=== PATIENT | female | born 2000 | race Two or more races ===

== ENCOUNTER 2019-08-21 18:39 | Emergency (ER) | payer MEDICAID ==
[~2019-08-21] VITALS: Ht 154.9 cm; Wt 49.9 kg
[2019-08-21 18:52] VITALS: BP 114/81
== END 2019-08-21 23:33 | disposition left against medical advice (07) ==
LOC: ER 18:41
DX: R51 Headache (principal); Z53.21 Procedure and treatment not carried out due to patient leaving prior to being seen by health care provider

== ENCOUNTER 2019-12-05 10:57 | Emergency (ER) | payer MEDICAID ==
[~2019-12-05] VITALS: Ht 154.9 cm; Wt 54.4 kg
[2019-12-05 12:47] VITALS: BP 120/67
== END 2019-12-05 13:35 | disposition home or self-care (01) ==
LOC: ER 11:11
DX: R68.84 Jaw pain (principal); Z32.01 Encounter for pregnancy test, result positive; Y08.89XA Assault by other specified means, initial encounter; Y93.89 Activity, other specified; Y99.8 Other external cause status; Y92.89 Other specified places as the place of occurrence of the external cause
CPT/HCPCS: 81002; 81025

== ENCOUNTER 2022-10-29 00:47 | Emergency (ER) | payer MEDICAID ==
[~2022-10-29] VITALS: Ht 154.9 cm; Wt 59.0 kg
[2022-10-29] MEDS ORDERED: FAMOTIDINE (10MG/ML) 2ML VL IV ONE (01:00)
[2022-10-29] MEDS ORDERED: diphenhdrAMINE HCL 50 MG/1 ML VL IV ONE (01:00)
[2022-10-29] MEDS ORDERED: IPRATROPIUM BROM 0.5 MG/2.5ML INH SOL NEB ONE (01:00)
[2022-10-29] MEDS ORDERED: EPINEPHrine HCL 1 MG/1 ML AMP IM ONE (01:00)
[2022-10-29] MEDS ORDERED: ALBUTEROL SULF 2.5 MG/0.5ML(0.5%) NEB SOLN NEB ONE (01:00)
[2022-10-29] MEDS ORDERED: methylPREDNISolone SOD SUCC 125 MG/2 ML VL IV ONE (01:00)
[2022-10-29 01:47] LABS: BUN/Creatinine Ratio 15.8; Calcium 9.2 mg/dL (8.5-10.1)
[2022-10-29 01:50] LABS: Bilirubin, Total 0.7 mg/dL (0.2-1.0); Total Protein 7.7 g/dL (6.4-8.2)
[2022-10-29 02:07] LABS: Basophils # (auto) 0 10 ^3/uL (0-0.2); Eosinophils # (auto) 0.1 10 ^3/uL (0-0.8); Eosinophils % (auto) 0.4 % (0.0-7.0); Hematocrit 43.2 % (36.0-46.0); Hemoglobin 14.5 g/dL (12.2-16.2); Lymphocytes # (auto) 5.9 10 ^3/uL (0.4-5.4); Lymphocytes % (auto) 28.3 % (10.0-50.0); Mean Corpuscular Hemoglobin 30.7 pg (28.0-32.0); Mean Corpuscular Hgb Conc. 33.6 g/dL (32.0-36.0); Mean Corpuscular Volume 91.3 fL (80.0-100.0); Monocytes # (auto) 1.4 10 ^3/uL (0-1.3); Monocytes % (auto) 6.7 % (0.0-12.0); Neutrophils # (auto) 13.4 10 ^3/uL (1.6-8.6); Neutrophils % (auto) 64.6 % (37.0-80.0); Potassium 2.7 mmol/L (3.5-5.1); Red Blood Cells 4.74 10^6/uL (4.0-5.20); Red Cell Distribution Width 13.2 % (11.8-14.3); White Blood Cell 20.7 10^3/uL (4.4-10.8)
[2022-10-29] MEDS ORDERED: POTASSIUM CHL 20 Meq TABLET PO ONE (02:15)
[2022-10-29 03:30] VITALS: BP 101/67
[2022-10-29] MEDS ORDERED: ALPR0.5T PO (03:31)
[2022-10-29] MEDS ORDERED: PRED20TA2 PO (03:31)
[2022-10-29] MEDS ORDERED: ALBUAER3 IN (03:31)
[2022-10-29] MEDS: ALPRAZolam 0.5 MG TAB PO ONE ×2 (03:34→03:43)
== END 2022-10-29 03:44 | disposition home or self-care (01) ==
LOC: ER 00:49
DX: T78.40XA Allergy, unspecified, initial encounter (principal); F41.9 Anxiety disorder, unspecified; Y92.89 Other specified places as the place of occurrence of the external cause
CPT/HCPCS: 36415; 71045; 80053; 84484; 85025; 93005; 94640; 96374; 96375; 99285; J0171; J1200; J2930; J3490; J7644

== ENCOUNTER 2024-05-06 13:54 | Inpatient (IN) | payer MEDICAID ==
[~2024-05-06] VITALS: Ht 167.6 cm; Wt 73.7 kg
[2024-05-06] VITALS (26 sets, daily range): BP systolic 66–192; BP diastolic 29–111; PULSE 70–118; RESP 13–22; TEMP 97.1–100.2; O2SAT 100
[~2024-05-06 13:54] MED LIST: ALBUAER3 IN; ALPR0.5T PO; PRED20TA2 PO
[2024-05-06] MEDS ORDERED: DexAMETHasone SOD PHOS 10MG/1ML VIAL INJ ONE (14:31)
[2024-05-06] MEDS ORDERED: PROPOFOL 10 MG/ML 20 ML IV ONE (14:31)
[2024-05-06] MEDS ORDERED: ONDANSETRON HCL 4 MG/2 ML VIAL ONE (14:31)
[2024-05-06] MEDS ORDERED: ROCURONIUM 10MG/ML 10ML VIAL IV ONE (14:31)
[2024-05-06] MEDS ORDERED: fentaNYL CITRATE 100 MCG/2 ML VL ONE (14:31)
[2024-05-06] MEDS ORDERED: ePHEDrine SULFATE 50 MG/ML AMP ONE (14:31)
[2024-05-06] MEDS ORDERED: MIDAZOLAM HCL 2MG/2ML 2ml VIAL (1mg/ml) ONE ×2 (14:31→17:25)
[2024-05-06] MEDS: LACT. RINGERS/OXYTOCIN 20UNITS 1,000 ML IV ONE (14:32)
[2024-05-06] MEDS: SUCCINYLCHOLINE CHLORIDE 20 MG/ML 10ML VIAL IV ONE (14:36)
[2024-05-06] MEDS: TRANEXAMIC ACID 10 ML ONE ×2 (14:48→15:51)
[2024-05-06] MEDS ORDERED: KETAMINE 50mg/ML 1ml syringe ONE (14:49)
[2024-05-06 15:02] LABS: Anion Gap 5 (5-15); Carbon Dioxide 21 mmol/L (20-30); Chloride 114 mmol/L (98-107); Potassium 3.7 mmol/L (3.5-5.1); Sodium 140 mmol/L (136-145)
[2024-05-06 15:08] LABS: Glucose 88 mg/dL (74-106)
[2024-05-06] MEDS: CARBOPROST TROMETHAMINE 250 MCG/1ML VIAL IM ONE (15:17)
[2024-05-06 15:18] LABS: BUN/Creatinine Ratio 10.4 (10.0-20.0); Blood Urea Nitrogen < 5 mg/dL (9-23)
[2024-05-06 15:41] LABS: Basophils # (auto) 0 10 ^3/uL (0-0.2); Eosinophils # (auto) 0.2 10 ^3/uL (0-0.8); Monocytes # (auto) 0.7 10 ^3/uL (0-1.3); Monocytes % (auto) 7.7 % (0.0-12.0); White Blood Cell 8.8 10^3/uL (4.4-10.8)
[2024-05-06 15:44] LABS: Basophils % (auto) 0.1 % (0.0-2.0); Eosinophils % (auto) 2.4 % (0.0-7.0); Hematocrit 19.9 % (36.0-46.0); Lymphocytes # (auto) 1.1 10 ^3/uL (0.4-5.4); Mean Corpuscular Hemoglobin 31.6 pg (28.0-32.0); Mean Corpuscular Hgb Conc. 34.4 g/dL (32.0-36.0); Mean Corpuscular Volume 91.8 fL (80.0-100.0); Neutrophils # (auto) 6.8 10 ^3/uL (1.6-8.6); Neutrophils % (auto) 76.8 % (37.0-80.0); Nucleated Red Blood Cells % 0.1 %; Red Blood Cells 2.16 10^6/uL (4.0-5.20)
[2024-05-06 15:49] LABS: Prothrombin Time 13.5 sec (9.3-11.8)
[2024-05-06] MEDS: METHYLERGONOVINE MALEATE 0.2 MG/ML AMP IM ONE (15:50)
[2024-05-06 15:56] LABS: Hemoglobin 6.8 g/dL (12.2-16.2)
[2024-05-06] MEDS ORDERED: HYDROmorphone HCL 2 MG/ML VL/or syr ONE (16:24)
[2024-05-06 17:00] LABS: Platelet Estimate Decreased
[2024-05-06 17:05] LABS: Basophils # (auto) 0 10 ^3/uL (0-0.2); Eosinophils # (auto) 0.1 10 ^3/uL (0-0.8); Hemoglobin 7.9 g/dL (12.2-16.2); Lymphocytes # (auto) 1.7 10 ^3/uL (0.4-5.4); Monocytes # (auto) 0.7 10 ^3/uL (0-1.3); Monocytes % (auto) 3.8 % (0.0-12.0); Red Blood Cells 2.67 10^6/uL (4.0-5.20); Red Cell Distribution Width 15.3 % (11.8-14.3)
[2024-05-06 17:07] LABS: Basophils % (auto) 0.2 % (0.0-2.0); Eosinophils % (auto) 0.6 % (0.0-7.0); Lymphocytes % (auto) 9.1 % (10.0-50.0); Mean Corpuscular Hemoglobin 29.7 pg (28.0-32.0); Mean Corpuscular Volume 89.9 fL (80.0-100.0); Neutrophils # (auto) 16.3 10 ^3/uL (1.6-8.6); Neutrophils % (auto) 86.3 % (37.0-80.0); Nucleated Red Blood Cells % 0.1 %; White Blood Cell 18.9 10^3/uL (4.4-10.8)
[2024-05-06 17:38] LABS: INR 2.43 (0.9-1.15); Prothrombin Time 24.2 sec (9.3-11.8)
[2024-05-06 18:15] LABS: Fibrinogen < 50 mg/dL (177-375)
[2024-05-06] MEDS: MIDAZOLAM DRIP 50 mg/50mL 50 ML IV ONE (18:29)
[2024-05-06] MEDS: fentaNYL Drip 2500mCg/250mlNS 250 ML IV ONE (18:30)
[2024-05-06] MEDS: NOREPINEPHRINE 8 MG/250ML KIT 250 ML IV ONE (18:30)
[2024-05-06] MEDS: GELATIN 1 SPONGE SIZE 50 TOP ONE (18:39)
[2024-05-06] MEDS: LIDOCAINE 2%HCL (LOCAL ANESTH.) INJ 10ml MDV ONE (18:39)
[2024-05-06] MEDS: EPINEPHrine HCL 250 ML IV SCH (18:45)
[2024-05-06] MEDS: PROPOFOL 100 ML IV SCH (18:45)
[2024-05-06] MEDS: PHENYLEPHRINE IV 250 ML IV SCH (18:45)
[2024-05-06] MEDS: PHENYLEPHRINE IV 250 ML IV ONE (18:49)
[2024-05-06] MEDS: EPINEPHrine HCL 250 ML IV ONE (18:54)
[2024-05-06] MEDS: NOREPINEPHRINE 8 MG/250ML KIT 250 ML IV SCH (19:00)
[2024-05-06] MEDS: MEROPENEM 1GM IVPB 50 ML IV ONE (19:15)
[2024-05-06] MEDS: SODIUM BICARB 8.4% 50Meq/50ml SYR Vial IV ONE (19:17)
[2024-05-06 19:24] LABS: Hematocrit 29.1 % (36.0-46.0); Hemoglobin 9.6 g/dL (12.2-16.2)
[2024-05-06] MEDS: IODIXANOL 320MG/ML 100ML BTL IV ONE (19:46)
[2024-05-06 19:53] LABS: Basophils # (auto) 0 10 ^3/uL (0-0.2); Basophils % (auto) 0.1 % (0.0-2.0); Eosinophils # (auto) 0 10 ^3/uL (0-0.8); Eosinophils % (auto) 0.1 % (0.0-7.0); Hematocrit 29.4 % (36.0-46.0); Hemoglobin 9.6 g/dL (12.2-16.2); Lymphocytes # (auto) 2.2 10 ^3/uL (0.4-5.4); Lymphocytes % (auto) 10.1 % (10.0-50.0); Mean Corpuscular Hemoglobin 29.5 pg (28.0-32.0); Mean Corpuscular Hgb Conc. 32.8 g/dL (32.0-36.0); Mean Corpuscular Volume 90.2 fL (80.0-100.0); Monocytes # (auto) 0.6 10 ^3/uL (0-1.3); Monocytes % (auto) 2.5 % (0.0-12.0); Neutrophils # (auto) 19.4 10 ^3/uL (1.6-8.6); Neutrophils % (auto) 87.2 % (37.0-80.0); Red Blood Cells 3.26 10^6/uL (4.0-5.20); White Blood Cell 22.3 10^3/uL (4.4-10.8)
[2024-05-06 20:35] LABS: Partial Thromboplastin Time 36.7 SEC (24.5-34.5); Prothrombin Time 15.4 sec (9.3-11.8)
[2024-05-06 20:40] LABS: Base Excess -9.9 mmol/L (-2.0-2.0)
[2024-05-06 21:13] LABS: Chloride 115 mmol/L (98-107); Potassium 4.5 mmol/L (3.5-5.1); Sodium 143 mmol/L (136-145)
[2024-05-06 21:16] LABS: Anion Gap 7 (5-15); Carbon Dioxide 21 mmol/L (20-30)
[2024-05-06 21:21] LABS: Glucose 185 mg/dL (74-106)
[2024-05-06 21:22] LABS: Alkaline Phosphatase 49 U/L (46-116); Magnesium 1.1 mg/dL (1.6-2.6)
[2024-05-06 21:23] LABS: Alanine Aminotransferase 26 U/L (7-40); Albumin 2.3 g/dL (3.2-4.8); Aspartate Aminotransferase 36 U/L (13-40)
[2024-05-06 21:24] LABS: Bilirubin, Total 0.6 mg/dL (0.2-1.0); Phosphorus 7.7 mg/dL (2.4-5.1); Total Protein 3.7 g/dL (5.7-8.2)
[2024-05-06 21:34] LABS: Blood Urea Nitrogen < 5 mg/dL (9-23)
[2024-05-06 21:35] LABS: BUN/Creatinine Ratio 16.1 (10.0-20.0)
[2024-05-06 21:36] LABS: Calcium 5.8 mg/dL (8.5-10.1)
[2024-05-06] MEDS: MIDAZOLAM DRIP 50 mg/50mL 50 ML IV SCH (22:23)
[2024-05-06] MEDS: fentaNYL Drip 2500mCg/250mlNS 250 ML IV SCH (22:34)
[2024-05-06] MEDS: CALCIUM GLUC 1,000mg/50ml-NS 50 ML IV SCH (22:36)
[2024-05-06] MEDS: CALCIUM GLUC 1,000mg/50ml-NS 50 ML IV ONE (22:52)
[2024-05-06] MEDS: MAGNESIUM SULFATE 1GM/100ML 100 ML IV ONE (23:16)
[2024-05-07] VITALS (104 sets, daily range): BP systolic 82–124; BP diastolic 54–91; PULSE 72–106; RESP 11–18; TEMP 97.8–100.2; O2SAT 98–100
[2024-05-07] MEDS: MAGNESIUM SULFATE 1GM/100ML 100 ML IV SCH (00:10)
[2024-05-07] MEDS: MEROPENEM 1GM IVPB 50 ML IV SCH (00:56)
[2024-05-07 02:09] LABS: INR 1.09 (0.9-1.15); Prothrombin Time 11.5 sec (9.3-11.8)
[2024-05-07 02:12] LABS: Alanine Aminotransferase 21 U/L (7-40); Alkaline Phosphatase 65 U/L (46-116); Anion Gap 9 (5-15); Calcium 7.8 mg/dL (8.7-10.4); Carbon Dioxide 20 mmol/L (20-30); Chloride 112 mmol/L (98-107); Glucose 164 mg/dL (74-106); Potassium 4.7 mmol/L (3.5-5.1); Sodium 141 mmol/L (136-145)
[2024-05-07 02:13] LABS: Aspartate Aminotransferase 47 U/L (13-40); Bilirubin, Total 0.6 mg/dL (0.2-1.0); Total Protein 4.9 g/dL (5.7-8.2)
[2024-05-07 02:14] LABS: BUN/Creatinine Ratio 10.2 (10.0-20.0); Blood Urea Nitrogen < 5 mg/dL (9-23)
[2024-05-07 02:23] LABS: Eosinophils # (auto) 0 10 ^3/uL (0-0.8); Mean Corpuscular Hgb Conc. 33.6 g/dL (32.0-36.0)
[2024-05-07 02:25] LABS: Basophils # (auto) 0 10 ^3/uL (0-0.2); Basophils % (auto) 0.1 % (0.0-2.0); Hematocrit 43.6 % (36.0-46.0); Hemoglobin 14.7 g/dL (12.2-16.2); Lymphocytes # (auto) 1.6 10 ^3/uL (0.4-5.4); Lymphocytes % (auto) 5.3 % (10.0-50.0); Mean Corpuscular Hemoglobin 30.6 pg (28.0-32.0); Mean Corpuscular Volume 91.2 fL (80.0-100.0); Monocytes # (auto) 2.2 10 ^3/uL (0-1.3); Monocytes % (auto) 7.5 % (0.0-12.0); Neutrophils # (auto) 25.4 10 ^3/uL (1.6-8.6); Neutrophils % (auto) 87.1 % (37.0-80.0); Red Blood Cells 4.78 10^6/uL (4.0-5.20); Red Cell Distribution Width 14.3 % (11.8-14.3); White Blood Cell 29.2 10^3/uL (4.4-10.8)
[2024-05-07 04:25] LABS: Urine Bacteria None Seen /hpf (None Seen)
[2024-05-07 04:49] LABS: Urine Blood TRACE /uL (Negative); Urine Clarity Clear (Clear); Urine Color Light-Yellow (Yellow); Urine Mucus FEW (None Seen); Urine Protein, UAD TRACE (Negative); Urine Specific Gravity 1.038 (1.001-1.035); Urine Urobilinogen Normal (Negative); Urine WBC 2 /hpf (0 - 5); Urine pH 5.5 (5.0-9.0)
[2024-05-07 07:39] LABS: Base Excess -2.6 mmol/L (-2.0-2.0)
[2024-05-07 11:06] LABS: Basophils # (auto) 0 10 ^3/uL (0-0.2); Basophils % (auto) 0.1 % (0.0-2.0); Eosinophils # (auto) 0 10 ^3/uL (0-0.8); Hematocrit 43.3 % (36.0-46.0); Hemoglobin 14.4 g/dL (12.2-16.2); Lymphocytes # (auto) 2.3 10 ^3/uL (0.4-5.4); Lymphocytes % (auto) 7.7 % (10.0-50.0); Mean Corpuscular Hemoglobin 30.8 pg (28.0-32.0); Mean Corpuscular Hgb Conc. 33.3 g/dL (32.0-36.0); Mean Corpuscular Volume 92.5 fL (80.0-100.0); Monocytes # (auto) 2.8 10 ^3/uL (0-1.3); Monocytes % (auto) 9.1 % (0.0-12.0); Neutrophils # (auto) 25.3 10 ^3/uL (1.6-8.6); Neutrophils % (auto) 83.1 % (37.0-80.0); Nucleated Red Blood Cells % 0.1 %; Red Blood Cells 4.68 10^6/uL (4.0-5.20); Red Cell Distribution Width 15.1 % (11.8-14.3)
[2024-05-07 11:13] LABS: White Blood Cell 30.5 10^3/uL (4.4-10.8)
[2024-05-07 11:22] LABS: Anisocytosis Slight; Platelet Estimate Decreased
[2024-05-07 12:36] LABS: Basophils # (auto) 0 10 ^3/uL (0-0.2); Eosinophils # (auto) 0 10 ^3/uL (0-0.8); Hematocrit 30.4 % (36.0-46.0); Lymphocytes # (auto) 1.9 10 ^3/uL (0.4-5.4); Lymphocytes % (auto) 9.4 % (10.0-50.0)
[2024-05-07 12:37] LABS: Hemoglobin 10.6 g/dL (12.2-16.2); Mean Corpuscular Hemoglobin 30.8 pg (28.0-32.0); Mean Corpuscular Hgb Conc. 34.9 g/dL (32.0-36.0); Mean Corpuscular Volume 88.2 fL (80.0-100.0); Monocytes % (auto) 10.1 % (0.0-12.0); Neutrophils # (auto) 16.2 10 ^3/uL (1.6-8.6); Neutrophils % (auto) 80.5 % (37.0-80.0); Red Blood Cells 3.44 10^6/uL (4.0-5.20); Red Cell Distribution Width 14.3 % (11.8-14.3); White Blood Cell 20.1 10^3/uL (4.4-10.8)
[2024-05-07 12:53] LABS: Alanine Aminotransferase 14 U/L (7-40); Albumin 2.3 g/dL (3.2-4.8); Alkaline Phosphatase 51 U/L (46-116); Anion Gap 4 (5-15); Aspartate Aminotransferase 37 U/L (13-40); Bilirubin, Total 0.3 mg/dL (0.2-1.0); Carbon Dioxide 25 mmol/L (20-30); Chloride 113 mmol/L (98-107); Glucose 126 mg/dL (74-106); Magnesium 1.6 mg/dL (1.6-2.6); Potassium 3.7 mmol/L (3.5-5.1); Sodium 142 mmol/L (136-145); Total Protein 3.6 g/dL (5.7-8.2)
[2024-05-07 12:54] LABS: INR 1.08 (0.9-1.15); Partial Thromboplastin Time 27.3 SEC (24.5-34.5); Prothrombin Time 11.4 sec (9.3-11.8)
[2024-05-07 12:55] LABS: BUN/Creatinine Ratio 16.7 (10.0-20.0); Blood Urea Nitrogen < 5 mg/dL (9-23)
[2024-05-07] MEDS: PANTOPRAZOLE 40 MG/10 ML VIAL INJ IV ONE (14:12)
[2024-05-07] MEDS: SODIUM CHLORIDE 0.9% 1,000 ML IV SCH (14:13)
[2024-05-07] MEDS: SODIUM CHLORIDE 0.9% 500 ML IV ONE (14:13)
[2024-05-08] VITALS (104 sets, daily range): BP systolic 81–123; BP diastolic 39–87; PULSE 65–164; RESP 6–16; TEMP 97.3–100.8; O2SAT 100
[2024-05-08 03:57] LABS: Basophils # (auto) 0 10 ^3/uL (0-0.2); Eosinophils # (auto) 0.1 10 ^3/uL (0-0.8); Hemoglobin 10.1 g/dL (12.2-16.2); Neutrophils # (auto) 9.4 10 ^3/uL (1.6-8.6); White Blood Cell 12.2 10^3/uL (4.4-10.8)
[2024-05-08 04:01] LABS: Basophils % (auto) 0.3 % (0.0-2.0); Eosinophils % (auto) 0.9 % (0.0-7.0); Hematocrit 29.2 % (36.0-46.0); Lymphocytes # (auto) 1.7 10 ^3/uL (0.4-5.4); Lymphocytes % (auto) 14.3 % (10.0-50.0); Mean Corpuscular Hemoglobin 30.4 pg (28.0-32.0); Mean Corpuscular Hgb Conc. 34.5 g/dL (32.0-36.0); Mean Corpuscular Volume 88.2 fL (80.0-100.0); Monocytes # (auto) 0.9 10 ^3/uL (0-1.3); Monocytes % (auto) 7.6 % (0.0-12.0); Neutrophils % (auto) 76.9 % (37.0-80.0); Red Blood Cells 3.31 10^6/uL (4.0-5.20); Red Cell Distribution Width 14.3 % (11.8-14.3)
[2024-05-08 04:08] LABS: Anion Gap 6 (5-15); Carbon Dioxide 26 mmol/L (20-30); Chloride 111 mmol/L (98-107); Potassium 3.5 mmol/L (3.5-5.1); Sodium 143 mmol/L (136-145)
[2024-05-08 04:09] LABS: Calcium 7.4 mg/dL (8.5-10.1)
[2024-05-08 04:14] LABS: BUN/Creatinine Ratio 16.7 (10.0-20.0); Blood Urea Nitrogen < 5 mg/dL (9-23); Glucose 109 mg/dL (74-106)
[2024-05-08] MEDS: PANTOPRAZOLE 40 MG/10 ML VIAL INJ IV SCH (11:03)
[2024-05-08] MEDS: ACETAMINOPHEN 650 mg PER 20.3 mL UD GT PRN (12:10)
[2024-05-08] MEDS ORDERED: Vital AF 1.2 Cal 1 liter bottle GT SCH (17:00)
[2024-05-09] VITALS (105 sets, daily range): BP systolic 87–129; BP diastolic 51–92; PULSE 70–142; RESP 8–28; TEMP 95.2–100.6; O2SAT 89–100
[2024-05-09 03:57] LABS: Anion Gap 4 (5-15); Carbon Dioxide 27 mmol/L (20-30); Chloride 110 mmol/L (98-107); Potassium 3.1 mmol/L (3.5-5.1); Sodium 141 mmol/L (136-145)
[2024-05-09 03:58] LABS: Calcium 7.4 mg/dL (8.7-10.4)
[2024-05-09 04:03] LABS: Basophils # (auto) 0 10 ^3/uL (0-0.2); Basophils % (auto) 0.3 % (0.0-2.0); Eosinophils # (auto) 0.3 10 ^3/uL (0-0.8); Glucose 82 mg/dL (74-106); Hemoglobin 8.8 g/dL (12.2-16.2); Lymphocytes # (auto) 1.6 10 ^3/uL (0.4-5.4); Mean Corpuscular Hemoglobin 31.2 pg (28.0-32.0); Mean Corpuscular Hgb Conc. 35.2 g/dL (32.0-36.0); Mean Corpuscular Volume 88.6 fL (80.0-100.0); Monocytes # (auto) 0.4 10 ^3/uL (0-1.3); Monocytes % (auto) 6.8 % (0.0-12.0); Neutrophils # (auto) 4.1 10 ^3/uL (1.6-8.6); Neutrophils % (auto) 63.9 % (37.0-80.0); Nucleated Red Blood Cells % 0.1 %; Red Blood Cells 2.82 10^6/uL (4.0-5.20); White Blood Cell 6.4 10^3/uL (4.4-10.8)
[2024-05-09 04:13] LABS: BUN/Creatinine Ratio 18.5 (10.0-20.0); Blood Urea Nitrogen < 5 mg/dL (9-23)
[2024-05-09] MEDS ORDERED: POTASSIUM CHL 20MEQ/100ML 100 ML IV ONE (06:00)
[2024-05-09] MEDS: POTASSIUM CHL 20MEQ/100ML 100 ML IV ONE (08:07)
[2024-05-09 09:05] LABS: Base Excess 0.2 mmol/L (-2.0-2.0)
[2024-05-09] MEDS: EPINEPHrine HCL 0.5 ML NEB ONE (10:55)
[2024-05-09] MEDS: EPINEPHrine HCL 0.5 ML NEB NEB ONE (11:00)
[2024-05-09] MEDS: methylPREDNISolone SOD SUCC 40 MG/ML VL ONE (11:11)
[2024-05-09] MEDS ORDERED: methylPREDNISolone ACETATE 80 MG/ML VL IM ONE (11:15)
[2024-05-09] MEDS: methylPREDNISolone SOD SUCC 40 MG/ML VL IM ONE (13:42)
[2024-05-09] MEDS: ONDANSETRON HCL 4 MG/2 ML VIAL IV PRN (14:01)
[2024-05-09] MEDS: ONDANSETRON HCL 4 MG/2 ML VIAL ONE (14:28)
[2024-05-09 16:29] LABS: Basophils # (auto) 0 10 ^3/uL (0-0.2); Basophils % (auto) 0.2 % (0.0-2.0); Eosinophils # (auto) 0 10 ^3/uL (0-0.8); Eosinophils % (auto) 0.1 % (0.0-7.0); Hematocrit 28.5 % (36.0-46.0); Hemoglobin 10.1 g/dL (12.2-16.2); Lymphocytes # (auto) 0.6 10 ^3/uL (0.4-5.4); Lymphocytes % (auto) 7.1 % (10.0-50.0); Mean Corpuscular Hemoglobin 30.8 pg (28.0-32.0); Mean Corpuscular Hgb Conc. 35.3 g/dL (32.0-36.0); Mean Corpuscular Volume 87.4 fL (80.0-100.0); Monocytes # (auto) 0.1 10 ^3/uL (0-1.3); Monocytes % (auto) 1.6 % (0.0-12.0); Neutrophils # (auto) 7.6 10 ^3/uL (1.6-8.6); Nucleated Red Blood Cells % 0.2 %; Red Blood Cells 3.26 10^6/uL (4.0-5.20); Red Cell Distribution Width 13.7 % (11.8-14.3); White Blood Cell 8.3 10^3/uL (4.4-10.8)
[2024-05-09] MEDS: POTASSIUM CHL 20MEQ/100ML 100 ML IV SCH (18:26)
[2024-05-09] MEDS: MAGNESIUM SULFATE 1GM/100ML 100 ML IV SCH (19:49)
[2024-05-10] VITALS (54 sets, daily range): BP systolic 75–121; BP diastolic 31–100; PULSE 59–130; RESP 8–19; TEMP 97.2–99.7; O2SAT 93–100
[2024-05-10 04:11] LABS: Basophils # (auto) 0 10 ^3/uL (0-0.2); Basophils % (auto) 0.1 % (0.0-2.0); Eosinophils # (auto) 0 10 ^3/uL (0-0.8); Eosinophils % (auto) 0.2 % (0.0-7.0); Hemoglobin 8.8 g/dL (12.2-16.2); Lymphocytes % (auto) 13.7 % (10.0-50.0); Mean Corpuscular Hemoglobin 30.2 pg (28.0-32.0); Mean Corpuscular Hgb Conc. 35.1 g/dL (32.0-36.0); Mean Corpuscular Volume 86.1 fL (80.0-100.0); Monocytes # (auto) 0.7 10 ^3/uL (0-1.3); Monocytes % (auto) 9.6 % (0.0-12.0); Neutrophils # (auto) 5.7 10 ^3/uL (1.6-8.6); Neutrophils % (auto) 76.4 % (37.0-80.0); Nucleated Red Blood Cells % 0.1 %; Red Cell Distribution Width 13.9 % (11.8-14.3); White Blood Cell 7.5 10^3/uL (4.4-10.8)
[2024-05-10 04:19] LABS: Anion Gap 1 (5-15); Carbon Dioxide 28 mmol/L (20-30); Chloride 110 mmol/L (98-107); Potassium 4.4 mmol/L (3.5-5.1); Sodium 139 mmol/L (136-145)
[2024-05-10 04:21] LABS: Calcium 8.2 mg/dL (8.7-10.4)
[2024-05-10 04:25] LABS: Glucose 106 mg/dL (74-106)
[2024-05-10 04:39] LABS: BUN/Creatinine Ratio 16.1 (10.0-20.0); Blood Urea Nitrogen < 5 mg/dL (9-23)
[2024-05-10] MEDS ORDERED: METOCLOPRAMIDE HCL 5MG/ml INJ 2ml VIAL IV PRN (10:30)
[2024-05-10 13:16] LABS: Hematocrit 24.1 % (36.0-46.0); Hemoglobin 8.2 g/dL (12.2-16.2)
[2024-05-11] VITALS (12 sets, daily range): BP systolic 91–166; BP diastolic 55–80; PULSE 73–115; RESP 12–18; TEMP 98.1–99; O2SAT 94–98
[2024-05-11 05:09] LABS: Basophils # (auto) 0 10 ^3/uL (0-0.2); Basophils % (auto) 0.4 % (0.0-2.0); Eosinophils # (auto) 0.3 10 ^3/uL (0-0.8); Eosinophils % (auto) 4.1 % (0.0-7.0); Hematocrit 26.4 % (36.0-46.0); Hemoglobin 9.4 g/dL (12.2-16.2); Lymphocytes # (auto) 2.1 10 ^3/uL (0.4-5.4); Lymphocytes % (auto) 29.5 % (10.0-50.0); Mean Corpuscular Hemoglobin 30.7 pg (28.0-32.0); Mean Corpuscular Hgb Conc. 35.4 g/dL (32.0-36.0); Mean Corpuscular Volume 86.8 fL (80.0-100.0); Monocytes # (auto) 0.6 10 ^3/uL (0-1.3); Neutrophils # (auto) 4.2 10 ^3/uL (1.6-8.6); Nucleated Red Blood Cells % 0.1 %; Red Blood Cells 3.05 10^6/uL (4.0-5.20); Red Cell Distribution Width 13.7 % (11.8-14.3); White Blood Cell 7.2 10^3/uL (4.4-10.8)
[2024-05-11 05:24] LABS: Calcium 8.3 mg/dL (8.5-10.1); Chloride 109 mmol/L (98-107); Potassium 3.5 mmol/L (3.5-5.1); Sodium 141 mmol/L (136-145)
[2024-05-11 05:25] LABS: Anion Gap 5 (5-15); Carbon Dioxide 27 mmol/L (20-30)
[2024-05-11 05:30] LABS: BUN/Creatinine Ratio 14.3 (10.0-20.0); Blood Urea Nitrogen < 5 mg/dL (9-23); Glucose 86 mg/dL (74-106)
[2024-05-11] MEDS ORDERED: PANT40TA2 PO (10:32)
== END 2024-05-11 14:42 | disposition home or self-care (01) | DRG 543 ==
LOC: EDBD 13:54 → ER 14:07 → ICU WEST 18:41 → DOU IN ICU 05-10 10:02 → TELE-CENTR 05-11 08:04
PROVIDERS: ADMIT Obstetrics & Gynecology; ATTEND Internal Medicine Pulmonary Disease
PROC: 10A07ZZ Abortion of Products of Conception, Via Natural or Artificial Opening (ICD-10-PCS; 2024-05-06)
PROC: 04VF3DZ Restriction of Left Internal Iliac Artery with Intraluminal Device, Percutaneous Approach (ICD-10-PCS; 2024-05-06)
PROC: 30233K1 Transfusion of Nonautologous Frozen Plasma into Peripheral Vein, Percutaneous Approach (ICD-10-PCS; 2024-05-06)
PROC: 30233N1 Transfusion of Nonautologous Red Blood Cells into Peripheral Vein, Percutaneous Approach (ICD-10-PCS; 2024-05-06)
PROC: 0BH17EZ Insertion of Endotracheal Airway into Trachea, Via Natural or Artificial Opening (ICD-10-PCS; 2024-05-06)
PROC: 5A1945Z Respiratory Ventilation, 24-96 Consecutive Hours (ICD-10-PCS; 2024-05-06)
PROC: B41G1ZZ Fluoroscopy of Left Lower Extremity Arteries using Low Osmolar Contrast (ICD-10-PCS; 2024-05-06)
PROC: B41F1ZZ Fluoroscopy of Right Lower Extremity Arteries using Low Osmolar Contrast (ICD-10-PCS; 2024-05-06)
PROC: 04VE3DZ Restriction of Right Internal Iliac Artery with Intraluminal Device, Percutaneous Approach (ICD-10-PCS; principal; 2024-05-06 15:11)
PROC: 02HV33Z Insertion of Infusion Device into Superior Vena Cava, Percutaneous Approach (ICD-10-PCS; 2024-05-07)
PROC: 30233M1 Transfusion of Nonautologous Plasma Cryoprecipitate into Peripheral Vein, Percutaneous Approach (ICD-10-PCS; 2024-05-07)
DX: O07.1 Delayed or excessive hemorrhage following failed attempted termination of pregnancy (principal); J96.01 Acute respiratory failure with hypoxia; O07.3 Failed attempted termination of pregnancy with other and unspecified complications; G93.41 Metabolic encephalopathy; I74.8 Embolism and thrombosis of other arteries; O07.4 Failed attempted termination of pregnancy without complication; D50.0 Iron deficiency anemia secondary to blood loss (chronic); E87.20 Acidosis, unspecified; G90.8 Other disorders of autonomic nervous system; J45.909 Unspecified asthma, uncomplicated; Z79.899 Other long term (current) drug therapy
CPT/HCPCS: 36415; 36600; 37242; 70450; 71045; 76856; 76942; 80048; 80053; 81001; 82805; 82962; 83605; 83615; 83735; 84100; 84132; 84443; 84702; 85014; 85018; 85025; 85379; 85384; 85610; 85730; 86850; 86900; 86901; 86920; 87040; 87070; 87081; 87086; 87205; 92610; 94002; 94003; 94640; 96365; 96372; 97163; 99152; 99291; C9113; G0378; J0171; J0330; J1100; J2001; J2185; J2250; J2405; J2590; J2704; J3480; J7060; Q9967